=== PATIENT | female | born 1955 | race Caucasian/White ===

== ENCOUNTER 2019-03-17 16:29 | Emergency (ER) | payer OTHER ==
[~2019-03-17] VITALS: Ht 157.5 cm; Wt 59.0 kg
[~2019-03-17 16:29] MED LIST: LEVAQUIN750 MG PO
== END 2019-03-17 18:47 | disposition home or self-care (01) ==
LOC: ER 16:29
DX: I16.0 Hypertensive urgency (principal)

== ENCOUNTER 2021-09-23 10:34 | Outpatient (CLI) | payer OTHER | END 2021-09-23 14:06 | disposition home or self-care (01) | LOC: LAB 10:34 | PROVIDERS: ATTEND Internal Medicine Cardiovascular Disease | DX: Z20.822 Contact with and (suspected) exposure to COVID-19 (principal) ==

== ENCOUNTER 2021-09-23 13:05 | Outpatient (CLI) | payer OTHER | END 2021-09-23 13:09 | disposition home or self-care (01) | LOC: SONOGRAMA 13:05 | PROVIDERS: ATTEND Pathology Anatomic Pathology & Clinical Pathology | DX: D37.030 Neoplasm of uncertain behavior of the parotid salivary glands (principal); D11.9 Benign neoplasm of major salivary gland, unspecified ==

== ENCOUNTER 2022-05-28 06:21 | Emergency (ER) | payer OTHER ==
[~2022-05-28] VITALS: Ht 157.5 cm; Wt 59.0 kg
== END 2022-05-28 14:31 | disposition home or self-care (01) ==
LOC: ER 06:21
DX: R10.13 Epigastric pain (principal); Z91.013 Allergy to seafood; Z88.8 Allergy status to other drugs, medicaments and biological substances

== ENCOUNTER 2023-05-01 12:35 | Emergency (ER) | payer OTHER ==
[~2023-05-01] VITALS: Ht 157.5 cm; Wt 59.0 kg
[2023-05-01] MEDS ORDERED: ONDANSETRON HCL 2 MG/ML VIAL IV ONE (15:00)
[2023-05-01] MEDS ORDERED: FAMOTIDINE/PF 20 MG/2 ML VIAL IV ONE (15:00)
[2023-05-01] MEDS ORDERED: IPRATROPIUM/ALBUTEROL SULFATE 3 ML AMPUL.NEB IH SCH (15:00)
[2023-05-01] MEDS ORDERED: METHYLPREDNISOLONE SOD SUCC 125 MG VIAL IV ONE (15:00)
[2023-05-01] MEDS ORDERED: GUAIFENESIN/DEXTROMETHORPHAN 100 MG/5 ML ML PO ONE (15:00)
[2023-05-01 16:10] LABS: HEMATOCRIT 41.6 % (36.0-45.00); MEAN CELL VOLUME 89.5 fL (80.00-100.00); MEAN CORPUSCULAR HEMOGLOBIN 30.1 pg (27.00-32.0); MEAN CORPUSCULAR HGB CONC 33.6 g/dl (32.0-36.0); PLATELET COUNT 282 K/uL (150-450); RED BLOOD COUNT 4.65 M/uL (4.00-6.00); RED CELL DISTRIBUTION WIDTH 14.6 % (11.5-14.5)
[2023-05-01] MEDS ORDERED: QC TUSSIN DM L118 ML PO (18:25)
[2023-05-01] MEDS ORDERED: BENZONATATE150 MG PO (18:25)
[2023-05-01] MEDS ORDERED: LEVOFLOXACIN750 MG PO (18:25)
[2023-05-01] MEDS ORDERED: MEDROLPACK PO (18:25)
[2023-05-01] MEDS ORDERED: XOPENEX CO1.25 MG/0. IH (18:25)
[2023-05-01] MEDS ORDERED: IPRATROPIU0.2 MG/1 M IH (18:25)
[2023-05-01] MEDS ORDERED: BUDESONIDE0.5 MG/2 M IH (18:25)
[2023-05-01 19:49] LABS: ABG PH 7.433 (7.35-7.45); ABG PO2 83.8 mmHg (80-100); ABG pCO2 36.8 mmHg (35-45); BASE EXCESS 0.2 mmol/l; SaO2 96.6 %
[2023-05-01 19:50] LABS: BICARBONATE 24.1 mmol/l (23-25); Tco2 25.2 mmol/l; allen test SATISFACTORY; o2 21 %; puncture site RADIAL LEFT
== END 2023-05-01 18:39 | disposition home or self-care (01) ==
LOC: ER 12:35
PROVIDERS: Nurse Practitioner Family
DX: J40 Bronchitis, not specified as acute or chronic (principal); R53.81 Other malaise; Z20.822 Contact with and (suspected) exposure to COVID-19; Z88.4 Allergy status to anesthetic agent; Z91.013 Allergy to seafood
CPT/HCPCS: 36415; 71046; 82803; 94644; 96365; 99283; J2405; J2930; J3490

== ENCOUNTER 2023-05-02 18:00 | Inpatient (IN) | payer OTHER ==
[~2023-05-02] VITALS: Ht 157.5 cm; Wt 59.0 kg
[~2023-05-02 18:00] MED LIST changes: +BENZONATATE150 MG PO; +BUDESONIDE0.5 MG/2 M IH; +IPRATROPIU0.2 MG/1 M IH; +LEVOFLOXACIN750 MG PO; +MEDROLPACK PO; +QC TUSSIN DM L118 ML PO; +XOPENEX CO1.25 MG/0. IH
[2023-05-02] MEDS ORDERED: 0.9 % SODIUM CHLORIDE 500 ML IV SCH (19:30)
[2023-05-02] MEDS ORDERED: METHYLPREDNISOLONE SOD SUCC 125 MG VIAL IV ONE (19:30)
[2023-05-02] MEDS ORDERED: IPRATROPIUM/ALBUTEROL SULFATE 3 ML AMPUL.NEB IH SCH (19:30)
[2023-05-02 20:15] LABS: HEMATOCRIT 38.4 % (36.0-45.00); HEMOGLOBIN 12.8 g/dL (12.0-15.00); MEAN CELL VOLUME 89.8 fL (80.00-100.00); MEAN CORPUSCULAR HEMOGLOBIN 29.8 pg (27.00-32.0); MEAN CORPUSCULAR HGB CONC 33.2 g/dl (32.0-36.0); PLATELET COUNT 290 K/uL (150-450); RED BLOOD COUNT 4.28 M/uL (4.00-6.00); RED CELL DISTRIBUTION WIDTH 14.4 % (11.5-14.5)
[2023-05-02 20:38] LABS: ABG PH 7.469 (7.35-7.45); ABG PO2 77.1 mmHg (80-100); ABG pCO2 31.5 mmHg (35-45); BASE EXCESS -0.3 mmol/l; BICARBONATE 22.4 mmol/l (23-25); SaO2 96.1 %; Tco2 23.3 mmol/l; allen test SATISFACTORY; o2 21 %; puncture site RADIAL RIGHT
[2023-05-02] MEDS ORDERED: IPRATROPIUM BROMIDE 0.5 MG/2.5 ML AMPUL.NEB IH SCH (20:45)
[2023-05-02] MEDS ORDERED: LEVALBUTEROL HCL 0.63 MG/3 ML SOLUTION IH SCH (20:45)
[2023-05-02 20:51] LABS: CALCIUM 9.5 mg/dL (8.5-10.1); CREATININE SERUM 0.88 mg/dL (0.55-1.02); GFR 63.71; POTASSIUM 4.56 mEq/L (3.5-5.1)
[2023-05-02] MEDS ORDERED: levoFLOXacin IN DEXTROSE 5 % 5 MG/ML PIGGYBAG IV ONE (21:30)
[2023-05-02] MEDS ORDERED: hydrALAZINE HCL 20 MG VIAL IV PRN (22:45)
[2023-05-02] MEDS ORDERED: KETOROLAC TROMETHAMINE 30 MG VIAL IV PRN (22:45)
[2023-05-02] MEDS ORDERED: ONDANSETRON HCL 4 MG in 0.9 % SODIUM CHLORIDE 50 ML IV PRN (22:45)
[2023-05-02] MEDS ORDERED: ACETAMINOPHEN 500 MG GEL..CAP PO PRN (22:45)
[2023-05-02] MEDS ORDERED: 0.9 % SODIUM CHLORIDE 1,000 ML IV SCH (22:45)
[2023-05-02] MEDS ORDERED: INSULIN LISPRO 1,000 UNIT/10 ML UNITS SUBCUTANEO PRN (23:00)
[2023-05-02] MEDS ORDERED: DEXTROSE 50 % IN WATER 0.5 G/ML DISP.SYRIN IV PRN (23:00)
[2023-05-03] MEDS ORDERED: IPRATROPIUM BROMIDE 0.5 MG/2.5 ML AMPUL.NEB IH SCH
[2023-05-03] MEDS ORDERED: GUAIFENESIN/DEXTROMETHORPHAN 100 MG/5 ML ML PO SCH
[2023-05-03] MEDS ORDERED: METHYLPREDNISOLONE SOD SUCC 40 MG VIAL IV SCH (01:00)
[2023-05-03] MEDS ORDERED: LEVALBUTEROL HCL 1.25 MG/3 ML SOLUTION IH SCH (01:00)
[2023-05-03 03:26] LABS: PH,URINE 5.5 (5.0-8.0); URINE APPEARANCE Clear; URINE BILIRRUBIN Negative (NEGATIVE); URINE BLOOD Negative; URINE COLOR Yellow; URINE GLUCOSE Negative (NEGATIVE); URINE LEUKOCYTE Negative; URINE NITRATE Negative; URINE PROTEIN Negative (NEGATIVE); URINE UROBILINOGEN 0.2 E.U./dl
[2023-05-03 03:30] LABS: URINE BACTERIA 8.8 uL (0.0-1933); URINE EPITHELIAL CELLS 16.9 uL (0.0-38.8); URINE RBC 5.7 uL (0.0-20.8); URINE WBC 6.1 uL (0.0-23.2)
[2023-05-03 07:17] LABS: ALBUMIN 3.7 gm/dL (3.4-5.0); ALKALINE PHOSPHATASE 75 U/L (50-136); ALT/SGPT 28 U/L (12-78); ANION GAP 11 (10.0-20.0); AST/SGOT 16 U/L (15-37); BILIRUBIN TOTAL 0.26 mg/dL (0.3-1.2); BILIRUBIN,CONJUGATED < 0.10 mg/dL (0.0-0.2); BILIRUBIN,UNCONJUGATED 0.16 mg/dL (0.0-0.6); BLOOD UREA NITROGEN 17 mg/dL (7-18); BUN CREA RATIO 17 (7.0-25.0); CARBON DIOXIDE 25 mEq/L (21-32); CHLORIDE 105 mmol/L (98-107); CHOL HDL RATIO 2.9 (0-5.0); CHOLESTEROL 157 mg/dL (0-200); CREATININE SERUM 0.98 mg/dL (0.55-1.02); GFR 56.27; GLOBULINA 3.2 G/DL (2.4-3.5); HDL 55 mg/dl (40-60); LDL 89 mg/dl (0-130); SODIUM 137 mmol/L (136-145); TOTAL PROTEIN 6.9 gm/dL (6.4-8.2); TRIGLYCERIDES 63 mg/dL (0-150); VLDL 12 (0-39)
[2023-05-03 07:39] LABS: INR 1.02; PARTIAL THROMBOPLASTIN TIME 27.1 SECONDS (22.0-34.0); PROTHROMBIN TIME 10.7 SECONDS (9.0-11.5)
[2023-05-03 07:47] LABS: HEMATOCRIT 35.9 % (36.0-45.00); HEMOGLOBIN 12.1 g/dL (12.0-15.00); MEAN CELL VOLUME 90.6 fL (80.00-100.00); MEAN CORPUSCULAR HEMOGLOBIN 30.5 pg (27.00-32.0); MEAN CORPUSCULAR HGB CONC 33.7 g/dl (32.0-36.0); PLATELET COUNT 271 K/uL (150-450); RED BLOOD COUNT 3.97 M/uL (4.00-6.00); RED CELL DISTRIBUTION WIDTH 14.5 % (11.5-14.5)
[2023-05-03 07:53] LABS: C-REACTIVE PROTEIN < 0.29 MG/DL (0.00-0.29); GLUCOSE FASTING 299 mg/dL (65-100); OSMOLALITY SERUM 287 MOSM/KG (275-295)
[2023-05-03 08:23] LABS: ERYTHROCYTE SEDIMENTATION RATE 42 mm/hr
[2023-05-03] MEDS ORDERED: FAMOTIDINE/PF 20 MG in 0.9 % SODIUM CHLORIDE 8 ML IV PUSH SCH (09:00)
[2023-05-03] MEDS ORDERED: levoFLOXacin IN DEXTROSE 5 % 150 ML IV SCH (09:00)
[2023-05-03] MEDS ORDERED: LOSARTAN POTASSIUM 50 MG TABLET PO SCH (09:00)
[2023-05-04] MEDS ORDERED: METHYLPREDNISOLONE SOD SUCC 40 MG VIAL IV SCH (21:00)
[2023-05-05] MEDS ORDERED: IPRATROPIUM BROMIDE 0.5 MG/2.5 ML AMPUL.NEB IH SCH (21:00)
[2023-05-06] MEDS ORDERED: METHYLPREDNISOLONE SOD SUCC 40 MG VIAL IV SCH (01:00)
== END 2023-05-06 13:43 | disposition home or self-care (01) | DRG 202 ==
LOC: ER 18:01 → SEC-K 23:39 → MEDI 23:39
PROVIDERS: General Practice; ADMIT Internal Medicine; ATTEND Internal Medicine
DX: J20.9 Acute bronchitis, unspecified (principal); J45.901 Unspecified asthma with (acute) exacerbation; J20.8 Acute bronchitis due to other specified organisms; J01.80 Other acute sinusitis; U09.9 Post COVID-19 condition, unspecified